=== PATIENT | female | born 2000 | race Caucasian/White ===

== ENCOUNTER → 2022-07-16 15:18 | Outpatient (CLI) | payer OTHER, SELFPAY ==
--- NOTE | ~2022-07-16 | XR_ITS ---
EXAM: XR abdomen/kub 1V DATE: 07/16/2022 15:42 HISTORY: Calculus of ureter . COMPARISON: 07/16/2022. FINDINGS: Clear lung bases. Normal bowel gas pattern. No organomegaly. No abnormal abdominal calcifi cation. Unfused posterior L5 arch, otherwise the regional bones and soft tissues normal for age. IMPRESSION: Normal abdominal radiograph findings. Reviewed, dictated and finalized at location K. 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
--- NOTE | ~2022-07-16 | CT_ITS ---
EXAMINATION: CT abdomen pelvis wo con DATE: 07/16/2022 15:42 INDICATION: Ureteral calculus, right side TECHNIQUE: Computed tomography (CT) of the abdomen and pelvis was performed without intravenous contr ast. Automated exposure control and iterative reconstruction technique were employed. Exam dose: 105 6.76 mGy-cm total exam DLP. COMPARISON: 07/16/2022 KUB FINDINGS: The lung bases are clear. Normal heart size. No pericardial or pleural effusion. The liver, gallbladder, bile ducts, spleen, pancreas, pancreatic duct, and adrenal glands and kidneys are unremarkable. No urinary tract calculus or hydroureteronephrosis. The urinary bladder is evacuat ed. The uterus and adnexal areas are unremarkable. Normal caliber of the abdominal aorta. No intraperitoneal or retroperitoneal or pelvic mass lesion or adenopathy or ascites is noted. There is a very small amount of free fluid in the posterior cul-de-s ac. Normal appendix. No bowel obstruction, bowel wall thickening, pneumatosis or intraperitoneal free air . Small fat-containing umbilical hernia. Included skeletal structures are unremarkable. IMPRESSION: No urinary tract calculus or hydroureteronephrosis Normal appendix Reviewed, dictated and finalized at Location A. Reviewed, dictated and finalized at location B. OF [employer]CH[employer]
== END ==
PROVIDERS: PCP Nurse Practitioner Adult Health; Visit Provider Nurse Practitioner Adult Health
DX: N20.1 Calculus of ureter (principal)
CPT/HCPCS: 74018; 74176

== ENCOUNTER 2025-02-11 17:55 | Emergency (ER) | payer OTHER, SELFPAY ==
--- NOTE | 2025-02-11 17:56 | ED.EAR ---
HPI - Ear Problem General Chief complaint: Ear Stated complaint: ear check Time Seen by Provider: 02/11/25 17:56 Source: patient Mode of arrival: ambulatory Limitations: no limitations History of Present Illness HPI Narrative: Stella is a 24-year-old female patient presenting to the clinic today with complaints of right ear discomfort x 1 day. She reports she has been recently swimming. No drainage from the ear. No fever, chills, or bodyaches. No URI symptoms. Related Data Home Medications ?Medication ?Instructions ?Recorded ?Confirmed ?Last Taken ?Type fluoxetine 40 mg capsule mg 02/11/25 Unknown History folic acid 1 mg tablet 02/11/25 Unknown History Allergies Allergy/AdvReac Type Severity Reaction Status Date / Time No Known Allergies Allergy Verified 02/11/25 18:07 Review of Systems Review of Systems: Pertinent positives per HPI. Patient denies any fever, chills, rash, headache, visual changes, dizziness, cough, runny nose, sore throat, shortness of breath, chest pain, palpitations, nausea, vomiting, diarrhea, constipation, abdominal pain, or any urinary issues. PMFSH Comments At the time of my signature, I reviewed and agree with the nursing past medical, surgical, social, and family history. There is no relevant family history pertinent to the patient complaint. Exam Narrative: General: Well-developed, well nourished, in no apparent distress Head: Normocephalic, atraumatic Eyes: Pupils equally round and reactive to light bilaterally, EOM intact, sclera and conjunctive clear, no discharge, lids normal Ears: Cerumen impaction to the right ear canal, TMs intact and congested, left ear canal clear, right ear canal swollen and red, tenderness to palpation over the tragus and pulling of the pinna, no drainage, grossly hearing normal. Nose: Nares patent, no discharge, no inflammation, no sinus tenderness. Mouth: Oropharynx without lesions or masses, good dentition, MMM. Neck: Supple, trachea midline, no enlargement of anterior or posterior cervical nodes, no thyroid masses or goiter palpable. Cardio: Regular rate and rhythm, s1 and s2 normal, no murmur appreciated. Resp: Clear to auscultation bilaterally anteriorly and posteriorly, no rhonchi, rales, wheezing or rubs Course Course Emergency Course: Portions of this record may have been created with voice recognition software. Level of Care: Express Care Visit Vital Signs Vital signs: Vital Signs Temperature 37.0 C 02/11/25 18:06 Pulse Rate 89 02/11/25 18:06 Respiratory Rate 16 02/11/25 18:06 Blood Pressure 142/92 H 02/11/25 18:06 Pulse Oximetry 97 02/11/25 18:06 Oxygen Delivery Room Air 02/11/25 18:06 Temperature 37.0 C 02/11/25 18:06 Pulse Rate 89 02/11/25 18:06 Respiratory Rate 16 02/11/25 18:06 Blood Pressure 142/92 H 02/11/25 18:06 Pulse Oximetry 97 02/11/25 18:06 Oxygen Delivery Room Air 02/11/25 18:06 Vital signs reviewed Procedures Ear Wax Removal Right Ear: Ear Wax Removal Date: 02/11/25 Results: Re-examined: some cerumen remains TM Examination: TM(s) intact, normal appearance Ear Canal Exam: atraumatic and other (Red, swollen) Patient Tolerated Procedure: well and no complications Complications: no problems Technique: ear canal irrigated Additional Comments: Verbal consent obtained for ear irrigation. Risk and benefits explained and patient voiced understanding. Ear irrigation performed using an elephant ear and spray water bottle. Mixture of 1/2 peroxide 1/2 water used to irrigate ear canal. Cerumen impaction cleared and TM visualized without redness. Grossly hearing normal. Patient tolerated procedure well Medical Decision Making MDM Narrative Medical decision making narrative: At the time of visit patient is resting comfortably on the exam table. Patient appears to be nontoxic. Plan: I suspect patient has cerumen impaction/right otitis externa. Ear irrigation was performed in the clinic successfully. Patient tolerated fair. Right ear canals red and swollen. Will place on ofloxacin. Supportive measures were discussed with the patient and they voiced understanding discharge instructions and agrees to treatment plan. Return precautions reviewed Differential Diagnosis Differential Diagnosis: Otitis media, otitis externa, eustachian tube dysfunction, cerumen impaction, upper respiratory infection, serous otitis Vital Signs Vital Signs: Vital Signs Temperature 37.0 C 02/11/25 18:06 Pulse Rate 89 02/11/25 18:06 Respiratory Rate 16 02/11/25 18:06 Blood Pressure 142/92 H 02/11/25 18:06 Pulse Oximetry 97 02/11/25 18:06 Oxygen Delivery Room Air 02/11/25 18:06 Temperature 37.0 C 02/11/25 18:06 Pulse Rate 89 02/11/25 18:06 Respiratory Rate 16 02/11/25 18:06 Blood Pressure 142/92 H 02/11/25 18:06 Pulse Oximetry 97 02/11/25 18:06 Oxygen Delivery Room Air 02/11/25 18:06 Discharge Plan Discharge Clinical Impression: Cerumen impaction Qualifiers: Laterality: right Qualified Code(s): H61.21 - Impacted cerumen, right ear External otitis of right ear Qualifiers: Otitis externa type: diffuse Chronicity: acute Qualified Code(s): H60.311 - Diffuse otitis externa, right ear Patient Disposition: Home Condition: Stable Instructions: Antibiotic Form, [place]'s [facility] (ED) Additional Instructions: Ear irrigation was performed in the clinic today. Take any prescribed medications only as directed-ofloxacin Tylenol/motrin as needed for pain May use heating pad to alleviate pain If you get recurrent ear infections it may be warranted to follow up with ENT. Follow up with your PCP in 3-5 days if symptoms persist. Patient Language: Icelandic Prescriptions: New ofloxacin 0.3 % drops 5 drp otic (ear) BID 7 Days Qty: 5 0RF No Action fluoxetine 40 mg capsule folic acid 1 mg tablet Follow-up/Referrals: UNKNOWN,DOCTOR [Non-Staff] - Time of Disposition: 18:12 Quality NIHSS Nursing Documentation ED NIHSS nursing documentation: reviewed/agree
--- OUTSIDE RECORDS SUMMARY | 2025-02-11 17:57 | XMS_ITS | Clinical Summary ---
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 [place] [address] Josefa Cheung MD 12/12/2024 1:20 PM CDT Office Visit [facility] - [facility] [address] [place] [address] Josefa Cheung MD Encounter for preconception consultation (Primary Dx); Encounter to establish care with new doctor from Last 3 Months Family History Medical History Relation Name Comments Hypertension Father Teodoro Cancer Maternal Grandfather Don Melanom a Breast Cancer Maternal Grandmother Ofelia Relation Name Status Comments Father Teodoro Alive Maternal Grandfather Don Alive Maternal Grandmother Ofelia Alive Social History Tobacco Use Types Packs/Day Years Used Date Smoking Tobacco: Never Passive Smoke Exposure: Never Smokeless Tobacco: Never Tobacco Cessation:Counseling Given: Not Answered Alcohol Use Standard Drinks/Week Comments Not Currently 0 (1 standard drink = 0.6 oz pur e alcohol) Comments No Sex and Gender Information Value Date Recorded Sex Assigned at Not on file Legal Sex Female 6:57 AM TITLE CURATOR Gender Identity Not on file Sexual Orientation Not on file Last Filed Vital Signs Vital Sign Reading Time Taken Comments Blood Pressure 132/74 12/12/2024 12:58 PM CDT Pulse 91 08/29/2024 10:01 AM TITLE CURATOR Temperature - - Respiratory Rate - - Oxygen Saturation 99% 08/29/2024 10:01 AM TITLE CURATOR Inhaled Oxygen Concentration - - Weight 131 kg (288 lb 12.8 oz) 12/12/2024 12:58 PM CDT Height 167.6 cm (5' 6) 12/12/2024 12:58 PM CDT Body Mass Index 46.61 12/12/2024 12:58 PM CDT Plan of Treatment Upcoming Encounters Date Type Department Care Team (Late st Contact Info) Description 03/06/2025 9:30 AM CDT Appointment [facility] [address] [place] [id number] [address] Health Maintenance Due Date Last Done Comments HPV VACCINES (1 - 3-dose series) 2013 HEPATITIS B VACCINES (3 of 3 - 19+ 3-dose series) 07/13/2018 05/18/2018, 11/16/2017, 10/07/2017 CERVICAL CANCER SCREENING 2019 HPV/Cotest (21-29) 2019 PAP SMEAR 2019 INFLUENZA VACCINE (#1) 2025 , 07/01/2019, 05/26/2018, Additional history exists DTAP/TDAP/TD VACCINES (3 - T d or Tdap) 04/04/2034 04/04/2024, 10/01/2017 Insurance [facility] [employer] [facility] OA PLUS
--- OUTSIDE RECORDS SUMMARY | 2025-02-11 17:57 | XMS_ITS | Data Portability ---
Author Organization [facility] Address [address] [address] Assessment Encounter Date Assessment Date Assessment LastModified by Organization Details LastModified Time 02/08/2024 02/08/2024 Pt with obesity related to excess energy intake, childbearing as evidenced by BMI of 46. Intervention: Increase knowledge of nutrition management by providing appropriate education to include portions, fiber, healthy fats, sodium, healthy plate guidelines, etc. Nutriquiz. Healthy weight program. Monitoring/Evalu ation: Verbal check in, will check diet recall at next appointment to assess adherence to diet recommendations. Review of NutriQuiz. Check weight PRN. Pt expressed understanding of the education provided. Pt felt confident that she could incorporate education to meet long and short term goals. Scheduled patient for follow-up in 3 weeks. Took follow-up survey with patient to encourage follow-up scheduling and completion: https://forms.gl [email or web address] Dq7 Completed NutriQuiz with patient and identified opportunities for improvement in diet quality yes Visit Start Time: 2:00 PM EDT Visit End Time: 2:58 PM EDT Total minutes providing MNT via audio or video: 58 minutes Not available 02/08/2024 15:17:58 03/07/2024 03/07/2024 Pt with obesity related to excess energy intake, childbearing as evidenced by BMI of 46. Intervention: Increase knowledge of nutrition management by providing appropriate education to include portions, fiber, healthy fats, sodium, healthy plate guidelines, etc. Nutriquiz. Healthy weight program. Monitoring/Evalu ation: Verbal check in, will check diet recall at next appointment to assess adherence to diet recommendations. Review of NutriQuiz. Check weight PRN. Pt expressed understanding of the education provided. Pt felt confident that she could incorporate education to meet long and short term goals. Scheduled patient for follow-up in 3 weeks. Took follow-up survey with patient to encourage follow-up scheduling and completion: [email or web address] Dq7 Completed NutriQuiz with patient and identified opportunities for improvement in diet quality yes Visit Start Time: 1:00 PM EDT Visit End Time: 1:55 PM EDT Total minutes providing MNT via audio or video: 55 minutes Not available 03/07/2024 13:58:13 03/14/2024 03/14/2024 Pt with obesity related to excess energy intake, childbearing as evidenced by BMI of 46. Intervention: Increase knowledge of nutrition management by providing appropriate education to include portions, fiber, healthy fats, sodium, healthy plate guidelines, etc. Nutriquiz. Healthy weight program. Monitoring/Evalu ation: Verbal check in, will check diet recall at next appointment to assess adherence to diet recommendations. Review of NutriQuiz. Check weight PRN. Pt expressed understanding of the education provided. Pt felt confident that she could incorporate education to meet long and short term goals. Scheduled patient for follow-up in 3 weeks. Took follow-up survey with patient to encourage follow-up scheduling and completion: [email or web address] Dq7 Completed NutriQuiz with patient and identified opportunities for improvement in diet quality yes Visit Start Time: 1:00 PM EDT Visit End Time: 1:56 PM EDT Total minutes providing MNT via audio or video: 56 minutes Not available 03/14/2024 14:09:01 03/21/2024 03/21/2024 Pt with obesity related to excess energy intake, childbearing as evidenced by BMI of 46. Intervention: Increase knowledge of nutrition management by providing appropriate education to include portions, fiber, healthy fats, sodium, healthy plate guidelines, etc. Nutriquiz. Healthy weight program. Monitoring/Evalu ation: Verbal check in, will check diet recall at next appointment to assess adherence to diet recommendations. Review of NutriQuiz. Check weight PRN. Pt expressed understanding of the education provided. Pt felt confident that she could incorporate education to meet long and short term goals. Scheduled patient for follow-up in 3 weeks. Took follow-up survey with patient to encourage follow-up scheduling and completion: [email or web address] Dq7 Completed NutriQuiz with patient and identified opportunities for improvement in diet quality yes Visit Start Time: 1:00 PM EDT Visit End Time: 1:53 PM EDT Total minutes providing MNT via audio or video: 53 minutes Not available 03/21/2024 13:55:13 04/18/2024 04/18/2024 Pt with obesity related to excess energy intake, childbearing as evidenced by BMI of 46. Intervention: Increase knowledge of nutrition management by providing appropriate education to include portions, fiber, healthy fats, sodium, healthy plate guidelines, etc. Nutriquiz. Healthy weight program. Monitoring/Evalu ation: Verbal check in, will check diet recall at next appointment to assess adherence to diet recommendations. Review of NutriQuiz. Check weight PRN. Pt expressed understanding of the education provided. Pt felt confident that she could incorporate education to meet long and short term goals. Scheduled patient for follow-up in 3 weeks. Took follow-up survey with patient to encourage follow-up scheduling and completion: [email or web address] Dq7 Completed NutriQuiz with patient and identified opportunities for improvement in diet quality yes Visit Start Time: 1:00 PM EDT Visit End Time: 1:54 PM EDT Total minutes providing MNT via audio or video: 54 minutes Not available 04/18/2024 13:55:22 Plan of Treatment Reminders Order Date Submit Date Provider Last Modified By Organization Details Last Modified Time Details Appointments None record ed. Lab None record ed. Referral None record ed. Procedures None record ed. Surgeries None record ed. Imaging None record ed. Medication Orders None record ed. Patient Targets Encounter Date Encounter Id Patient Goals Patient Target Last Modified By Organization Details Last Modified Time 02/08/2024 [id number] 1. Do a 15 minute beach body workout at least 3x per week for the next month. 2. Incorporate plate method into at least 1 meal at least 3x per week for the next 3 weeks. (refer to healthy plate guidelines: 1/2 non starchy vegetable, 1/4 lean proteins, and 1/4 grains/starches .) Not available 02/08/2024 15:14:49 03/07/2024 [id number] 1. Do a 15 minute beach body workout at least 3x per week for the next month. 2. Incorporate plate method into at least 1 meal at least 3x per week for the next 3 weeks. (refer to healthy plate guidelines: 1/2 non starchy vegetable, 1/4 lean proteins, and 1/4 grains/starches .) Not available 03/02/2024 13:16:26 03/14/2024 [id number] 1. Do a 10-15 minute beach body workout at least 3x per week for the next month. 2. Incorporate plate method into at least 1 meal at least 3x per week for the next 3 weeks. (refer to healthy plate guidelines: 1/2 non starchy vegetable, 1/4 lean proteins, and 1/4 grains/starches .) 3. Download a calorie tracking dennis like [employer] Trunkpal and try tracking a full day of eating at least 2x in the next week. Not available 03/14/2024 14:10:05 03/21/2024 [id number] 1. Do 40 minutes of activity 4x per week in the next week. 2. Continue calorie tracking dennis 3x per week like [employer] Trunkpal and work on being within calorie range of ~7253-8538 calories/day. 3. Go on the GrowBLOX or any other healthy recipe site to find 1-2 healthy recipes to try in the next week. Not available 03/21/2024 13:51:32 04/18/2024 [id number] 1. Do 40 minutes of activity 4x per week in the next week. 2. Continue calorie tracking dennis 3x per week like [employer] Tr[employer] and work on being within calorie range of ~7125-2508 calories/day. 3. Go on the GrowBLOX or any other healthy recipe site to find 1-2 healthy recipes to try in the next week. Not available 04/13/2024 13:10:10 Patient Instructions Encounter Date Encounter Id Patient Instructions Last Modified By Organization Details Last Modified Time 02/08/2024 [id number] [facility] Plate Not available 02/08/2024 15:19:49 [facility] Weight Program Packet Not available 02/08/2024 15:19:49 Kimo Douglas, these are the goals we discussed today to try to work on prior to our next appointment: 1. Do a 15 minute workout on the [employer]Connect CRM dennis at least 3x per week for the next month. 2. Incorporate plate method into at least 1 meal at least 3x per week for the next 3 weeks. (refer to healthy plate guidelines: 1/2 non starchy vegetable, 1/4 lean proteins, and 1/4 grains/starches.) Have a great week and you got this! Not available 02/08/2024 15:16:13 03/07/2024 [id number] [facility] Plate Not available 03/07/2024 15:38:32 [facility] Weight Program Packet Not available 03/07/2024 15:38:32 [facility] 4: Fiber First Not available 03/07/2024 15:38:32 learning about foods that are good sources of fiber Not available 03/07/2024 15:38:32 Kimo Douglas, these are the goals we discussed today to try to work on prior to our next appointment: 1. Do a 10 minute workout on the [employer]Connect CRM dennis at least 3x per week for the next month. 2. Incorporate plate method into at least 1 meal at least 3x per week for the next 3 weeks. (refer to healthy plate guidelines: 1/2 non starchy vegetable, 1/4 lean proteins, and 1/4 grains/starches.) High protein snack ideas: https://www.[employer]Vault Dragon/nutriti on/kmpqqdj-skfz-z rotein-snacks#26. -US[employer]t dennis log in instructions: https://support.[facility].co/hc/en -us/articles/4402 379113141-Eyskr-c ulfzznzl-ogu-mkyx lvxdfg-Bmh-lhvhl Have a great week and you got this! Not available 03/07/2024 15:42:06 03/14/2024 [id number] [facility] Plate Not available 03/14/2024 14:11:29 [facility] Weight Program Packet Not available 03/14/2024 14:11:29 [facility] 4: Fiber First Not available 03/14/2024 14:11:29 learning about foods that are good sources of fiber Not available 03/14/2024 14:11:29 [facility] 5: Healthy Fats Not available 03/14/2024 14:11:29 Hi Stella, these are the goals we discussed today to try to work on prior to our next appointment: 1. Do a 10 minute workout on the [employer]Connect CRM dennis at least 3x per week for the next month. 2. Incorporate plate method into at least 1 meal at least 3x per week for the next 3 weeks. (refer to healthy plate guidelines: 1/2 non starchy vegetable, 1/4 lean proteins, and 1/4 grains/starches.) 3. Download a calorie tracking dennis like [employer] and try tracking a full day of eating at least 2x in the next week. High protein snack ideas: https://www.[employer]ursenav/nutriti on/sksomlf-ryfs-u rotein-snacks#26. -USMDt dennis log in instructions: https://support.[facility].co/hc/en -us/articles/4402 820138362-Rsbic-k amahbloz-vee-dpas qjyska-Khu-onunt Have a great week and you got this! Not available 03/14/2024 14:10:03 Recommended calorie range for weight loss: ~4501-5354 calories/day Not available 03/14/2024 14:10:33 03/21/2024 [id number] [facility] Plate Not available 03/21/2024 13:55:21 [facility] Weight Program Packet Not available 03/21/2024 13:55:21 [facility] 4: Fiber First Not available 03/21/2024 13:55:21 learning about foods that are good sources of fiber Not available 03/21/2024 13:55:21 [facility] 5: Healthy Fats Not available 03/21/2024 13:55:21 Hi Stella, these are the goals we discussed today to try to work on prior to our next appointment: 1. Do 40 minutes of activity 4x per week in the next week. 2. Continue calorie tracking dennis 3x per week like Chief Trunkpal and work on being within calorie range of ~4884-3039 calories/day. 3. Go on the [employer]in website or any other healthy recipe site to find 1-2 healthy recipes to try in the next week. High protein snack ideas: https://www.[employer]ursenav/nutriti on/aeyzkcg-edce-a rotein-snacks#26. -Quinoa [facility] dennis log in instructions: https://support.[facility].Strands/hc/en -us/articles/4402 146445318-Kloka-f rkfvcueu-apc-jcbh ihmajm-Ijv-gyank Have a great week and you got this! Not available 03/21/2024 13:52:25 Recommended calorie range for weight loss: ~3233-2713 calories/day Recommended protein range: 71-88 g protein Not available 03/21/2024 13:46:33 04/18/2024 [id number] [facility] Plate Not available 04/18/2024 13:55:23 [facility] Weight Program Packet Not available 04/18/2024 13:55:23 [facility] 4: Fiber First Not available 04/18/2024 13:55:23 learning about foods that are good sources of fiber Not available 04/18/2024 13:55:23 [facility] 5: Healthy Fats Not available 04/18/2024 13:55:23 Kimo Douglas, these are the goals we discussed today to try to work on prior to our next appointment: 1. Walk dogs at least 1x and do at least 1 beach body workout. 2. Continue calorie tracking dennis 1-2x per week like [employer]unkpal and work on being within calorie range of ~1494-1929 calories/day and 71-88 g of protein. 3. Go on the [employer] website or any other healthy recipe site to find 1-2 healthy recipes to try in the next week. High protein snack ideas: https://www.Nursenav/nutriti on/uqfamkb-cwyu-g rotein-snacks#26. -[employer] dennis log in instructions: https://support.f [employer].co/hc/en -us/articles/4402 155250444-Nppml-i pfhrtbcr-shr-tpcg anndnw-Qkn-mxdzh Have a great week and you got this! Not available 04/18/2024 13:54:53 Recommended calorie range for weight loss: ~3851-1986 calories/day Recommended protein range: 71-88 g protein Not available 04/13/2024 13:10:10 Reason for Referral None Reported. Medical Equipment None Reported. Medications Name Sig Start Date Stop Date Status Note LastModified by Organization Details LastModified Time fluoxetine 40 mg capsule TAKE 1 CAPSULE BY MOUTH ONCE DAILY active Not Available Not Available No t Available cyanocobalam in (vit B-12) ER 1,000 mcg tablet,exten ded release active Not Available Not Available Not Available acetic acid 2 % ear solution INSTILL 4 DROPS INTO AFFECTED EAR(S) EVERY 8 HOURS FOR 7 DAYS active Not Available Not Available No t Available methylergono vine 0.2 mg tablet active Not Available Not Available Not Available progesterone micronized 200 mg capsule TAKE 3 CAPSULES BY MOUTH AT BEDTIME active Not Available Not Available No t Available pyridoxine (vitamin B6) 50 mg tablet active Not Available Not Available Not Available folic acid 1 mg tablet active Not Available Not Available No t Available ibuprofen 600 mg tablet active Not Available Not Available Not Available fluoxetine 20 mg capsule TAKE 1 CAPSULE BY MOUTH ONCE DAILY active Not Available Not Available No t Available fluticasone propionate 50 mcg/actuatio n nasal spray,suspen aptricia USE 1 SPRAY(S) IN EACH NOSTRIL ONCE DAILY BEFORE BED FOR 14 DAYS active Not Available Not Available Not Available ciprofloxaci n 0.3 %-dexamethas one 0.1 % ear drops,suspen patricia INSTILL 3 DROPS INTO EACH EAR TWICE DAILY FOR 7 DAYS active Not Available Not Available N ot Available Tri-Sprintec (28) 0.18 mg(7)/0.215 mg(7)/0.25 mg(7)-0.035 mg tablet TAKE 1 TABLET BY MOUTH ONCE DAILY active Not Available Not Available No t Available Vraylar 1.5 mg capsule TAKE 1 CAPSULE BY MOUTH ONCE DAILY active Not Available Not Available No t Available EluRyng 0.12 mg-0.015 mg/24 hr vaginal ring INSERT ONE RING VAGINALLY AND LEAVE IN PLACE FOR 3 CONSECUTIVE WEEKS, THEN REMOVE FOR 1 WEEK. INSERT NEW RING 7 DAYS AFTER THE LAST WAS REMOVED active Not Available Not Available No t Available Vitals Date Recorded Body weight Body mass index (BMI) Body height Provider Name and Address Organization Details Last Updated DateTime 02/08/2024 409304.83 g 46 kg/m2 167.64 cm Enedelia Mariscals, RD [address] [facility], [place], [address], [facility] [employer] 02/08/2024 14:13:24 Date Recorded Body height Provider Name an d Address Organization Details Last Updated DateTime 03/07/2024 167.64 cm Enedelia Carlson, R D [address] [facility], [place], [address], [facility] [employer] 03/07/2024 15:39:11 Date Recorded Body height Body mass index (BMI) Body weight Provider Name and Address Organization Details Last Updated DateTime 03/14/2024 167.64 cm 47.3 kg/m2 607879.56 g Enedelia Mariscals, RD [address] [facility], [place], [address], [facility] [employer] 03/14/2024 13:32:20 Date Recorded Body height Body mass index (BMI) Body weight Provider Name and Address Organization Details Last Updated DateTime 03/21/2024 167.64 cm 46.8 kg/m2 239885.79 g Enedelia Carlson, RD [address] [facility], [place], [address], [facility] [employer] 03/21/2024 13:45:07 Date Recorded Body height Body mass index (BMI) Body weight Provider Name and Address Organization Details Last Updated DateTime 04/18/2024 167.64 cm 46.6 kg/m2 376215.19 g Enedelia Mariscals, RD [address] [facility], [place], [address], [facility] [employer] 04/18/2024 13:01:43 Social History None recorded. Functional Status None recorded. Mental Status None recorded. Family History Nothing Reported Notes:High BP in father, steve anoma, breast cancer Medical History Condition Response High Blood Pressure N Anxiety Y Hyperthyroidism N Autoimmune Condition N Depression Y Hypothyroidism N Celiac Disease N Elevated Cholesterol Y Long-term corticosteroid use N Type 2 Diabetes N Prediabetes N Obesity Y Kidney Disease (CKD/ESRD) N Inflammatory Bowel Disease N Cancer N Stroke N Heart Attack N Allergies N Cardiovascular Disease N Long-term antibiotic use N GERD, Reflux or Heartburn N Irritable Bowel Syndrome N Type 1 Diabetes N Gynecological HistoryNo gynecological history recorded. Obstetrics History GPAL:G 0 P 0 0 0 0 Past Encounters Encounter ID Performer Location Encounter Start Date Encounter Closed Date Diagnosis/Indication Diagnosis SNOMED-CT Code Diagnosis ICD10 Code Diagnosis Note [id number] Enedelia Carlson RD [address] [place] [address] 02/08/2024 14:00:12 02/08/2024 15:26:50 Diet education 96829806 Z71.3 1. Discussed week 1 of healthy weight: setting SMART goals.2. Began week 2: healthy plate [id number] Enedelia Carlson RD [address] [place] [address] 03/07/2024 12:59:47 03/07/2024 15:43:54 Diet education 87021297 Z71.3 1. Discussed week 1 of healthy weight: setting SMART goals.2. Began week 2: healthy plate3. Discussed healthy weight week 2: portions4. discussed role of fiber and dietary sources [id number] Enedelia Carlson RD [address] [place] [address] 03/14/2024 13:00:03 03/14/2024 14:14:14 Diet education 34964388 Z71.3 1. Discussed week 1 of healthy weight: setting SMART goals.2. Began week 2: healthy plate3. Discussed healthy weight week 2: portions4. discussed role of fiber and dietary sources5. Discussed reading food labels and added sugars.6. Discussed role and dietary sources of healthy fats. [id number] Enedelia Carlson RD [address] [place] [address] 03/21/2024 13:00:03 03/21/2024 14:23:42 Diet education 89243155 Z71.3 1. Discussed week 1 of healthy weight: setting SMART goals.2. Began week 2: healthy plate3. Discussed healthy weight week 2: portions4. discussed role of fiber and dietary sources5. Discussed reading food labels and added sugars.6. Discussed role and dietary sources of healthy fats.7. Discussed curbing cravings.8 . Discussed importance of physical activity. [id number] Enedelia Carlson RD [facility] [place] [address] [facility],[address] [place] [address] 04/18/2024 12:59:55 04/18/2024 14:00:18 Diet education 91401348 Z71.3 1. Discussed week 1 of healthy weight: setting SMART goals.2. Began week 2: healthy plate3. Discussed healthy weight week 2: portions4. discussed role of fiber and dietary sources5. Discussed reading food labels and added sugars.6. Discussed role and dietary sources of healthy fats.7. Discussed curbing cravings.8 . Discussed the importance of physical activity.9 . Discussed mindful eating and tuning into hunger cues. Health Concerns Section Related Observation LastModified by Organization Detai ls LastModified Time None Recorded Concern Status LastModified by Organization Details LastModified Time None Recorded Advance Directives Directive None Recorded Payers Insurance Date Sequence Insurance Name Policy Number Policy Pimentel Covered Member ID Pimentel Member ID Guarantor Name 05/20/2024 1 TROY [id number] Stella Hernandez [id number] Stella Hernandez Notes Date Note Type Note Provider Name and Address Organization Details Recorded Time 02/08/2024 text/html [facility] ADIMER[facility]orted bypatient.Weight History:desired/goal weight: 160-170 pounds; past diets: (did keto prior to joining the ) Labs:total cholesterol (high); hx of low vit D Diet Recall:breakfast notes: (cereal); AM snack notes: (candy, snack, chips); lunch notes: (pizza); PM snack notes: (donuts); dinner notes: (tacos: cheese, sour cream, hot sauce); beverage notes: (sweet tea, water, sometimes coke) Fluid Intake:never drinks coffee; never drinks alcohol;drinks very little fluids(24-48 oz); drinks regular soda Appetite:good (always hungry - especially bwhen bored) Food Allergies or Intolerances:no food allergies; no lactose intolerance;aversions /dislikes:(seafood (sometimes like cod or catfish)) GI:no heartburn;bloating(we ekly - when she overeats);constipatio n(a few times a month);diarrhea(a couple times a month); bowel movements: 1+ per day Supplements:currently taking vitamin supplement (B6, folic acid); Doctor has recommended she take vit D, she just has not taken it yet Activity:Just got a swimming pool - swims a couple hours per day Social:eats breakfast; cooks meals (sometimes); likes to cook (sometimes - lasagna, tacos, enchiladas); Lives with and 2 children Usual Food Intake:daily servings of grains/starches: 7-8; daily servings of fruits: (once per week - strawberries, mangoes, grapes, peaches, oranges, watermelon); daily servings of vegetables: (1-2 per week - likes broccoli, cauliflower, carrots); daily intake of meat: ounces (chicken, steak, burgers,) Adult Weight Management Assessment Food and Nutrition Knowledge and Behaviors:consumes dairy food servings/day (1% or 2% milk with yogurt and sometimes cheese); reads food labels and uses labels to make appropriate food selections (looks at calories, serving size) Pt seen by RD regarding nutrition counseling for weight loss. Pt reports that reports that she has steadily gained weight since her last where she lost her baby and is hoping to learn about eating healthier and losing weight. Enedelia Carlson RD [address] [facility],[address], [place], [address], [place] - [employer] 02/08/2024 15:24:19 03/07/2024 text/html [facility] ADIMEReported bypatient.Weight History:desired/goal weight: 160-170 pounds; past diets: (did keto prior to joining the ) Labs:total cholesterol (high); hx of low vit D Diet Recall:breakfast notes: (cereal); AM snack notes: (candy, snack, chips); lunch notes: (pizza); PM snack notes: (donuts); dinner notes: (tacos: cheese, sour cream, hot sauce); beverage notes: (sweet tea, water, sometimes coke) Fluid Intake:never drinks coffee; never drinks alcohol;drinks very little fluids(24-48 oz); drinks regular soda Appetite:good (always hungry - especially bwhen bored) Food Allergies or Intolerances:no food allergies; no lactose intolerance;aversions /dislikes:(seafood (sometimes like cod or catfish)) GI:no heartburn;bloating(we ekly - when she overeats);constipatio n(a few times a month);diarrhea(a couple times a month); bowel movements: 1+ per day Supplements:currently taking vitamin supplement (B6, folic acid); Doctor has recommended she take vit D, she just has not taken it yet Activity:Just got a swimming pool - swims a couple hours per day Social:eats breakfast; cooks meals (sometimes); likes to cook (sometimes - lasagna, tacos, enchiladas); Lives with and 2 children Usual Food Intake:daily servings of grains/starches: 7-8; daily servings of fruits: (once per week - strawberries, mangoes, grapes, peaches, oranges, watermelon); daily servings of vegetables: (1-2 per week - likes broccoli, cauliflower, carrots); daily intake of meat: ounces (chicken, steak, burgers,) Adult Weight Management Assessment Food and Nutrition Knowledge and Behaviors:consumes dairy food servings/day (1% or 2% milk with yogurt and sometimes cheese); reads food labels and uses labels to make appropriate food selections (looks at calories, serving size) Pt seen by RD regarding nutrition counseling for weight loss. Pt reports that reports that she has steadily gained weight since her last where she lost her baby and is hoping to learn about eating healthier and losing weight. 03/07- Pt seen in f/u by RD regarding nutrition counseling for weight loss. Pt reports that has been struggling with an all or nothing mentality. Reports that she has also been struggling with snacking and mindless eating. Reports that she has been doing a lot of swimming recently. Reviewed goals set last time and discussed trying to set aside time to get into the habit of intentional exercise by trying to set aside at least 10 minutes a couple times per week. Discussed some ideas for high protein snacks. Enedelia Carlson, MONSE [address] [facility],[address], [place], [address], [place] - [place] 03/07/2024 15:43:08 03/14/2024 text/html FOODSMART ADIMEReported bypatient.Weight History:desired/goal weight: 160-170 pounds; past diets: (did keto prior to joining the ) Labs:total cholesterol (high); hx of low vit D Diet Recall:breakfast notes: (cereal); AM snack notes: (candy, snack, chips); lunch notes: (pizza); PM snack notes: (donuts); dinner notes: (tacos: cheese, sour cream, hot sauce); beverage notes: (sweet tea, water, sometimes coke) Fluid Intake:never drinks coffee; never drinks alcohol;drinks very little fluids(24-48 oz); drinks regular soda Appetite:good (always hungry - especially bwhen bored) Food Allergies or Intolerances:no food allergies; no lactose intolerance;aversions /dislikes:(seafood (sometimes like cod or catfish)) GI:no heartburn;bloating(we ekly - when she overeats);constipatio n(a few times a month);diarrhea(a couple times a month); bowel movements: 1+ per day Supplements:currently taking vitamin supplement (B6, folic acid); Doctor has recommended she take vit D, she just has not taken it yet Activity:Just got a swimming pool - swims a couple hours per day Social:eats breakfast; cooks meals (sometimes); likes to cook (sometimes - lasagna, tacos, enchiladas); Lives with and 2 children Usual Food Intake:daily servings of grains/starches: 7-8; daily servings of fruits: (once per week - strawberries, mangoes, grapes, peaches, oranges, watermelon); daily servings of vegetables: (1-2 per week - likes broccoli, cauliflower, carrots); daily intake of meat: ounces (chicken, steak, burgers,) Adult Weight Management Assessment Food and Nutrition Knowledge and Behaviors:consumes dairy food servings/day (1% or 2% milk with yogurt and sometimes cheese); reads food labels and uses labels to make appropriate food selections (looks at calories, serving size) Pt seen by RD regarding nutrition counseling for weight loss. Pt reports that reports that she has steadily gained weight since her last where she lost her baby and is hoping to learn about eating healthier and losing weight. 03/07- Pt seen in f/u by RD regarding nutrition counseling for weight loss. Pt reports that has been struggling with an all or nothing mentality. Reports that she has also been struggling with snacking and mindless eating. Reports that she has been doing a lot of swimming recently. Reviewed goals set last time and discussed trying to set aside time to get into the habit of intentional exercise by trying to set aside at least 10 minutes a couple times per week. Discussed some ideas for high protein snacks. 03/14- Pt seen in f/u by RD regarding nutrition counseling for weight loss. Pt reports that she started being more mindful on what she's eating and working on building her balanced plate - noticed that she felt parish and more satisfied and had more energy. Reports that she did some swimming and did a 10 minute beach body workout. Great wins this week! Discussed reading food labels and limiting added sugars. Also discussed healthy fats and calorie deficits.MSJ =~2800 kcals/d; -500 kcal deficit range = 3564-8923 kcals/day Enedelia Carlson, MONSE [address] [facility],[address], [place], [address], [place] - [employer] 03/14/2024 14:13:34 03/21/2024 text/html FOODSMART ADIMEReported bypatient.Anthrop[employer] manuel Measurements:Adj BW= 194 lbs (88 kg) Weight History:desired/goal weight: 160-170 pounds; past diets: (tried keto prior to joining the ) Labs:total cholesterol (high); hx of low vit D Diet Recall:breakfast notes: (cereal); AM snack notes: (candy, snack, chips); lunch notes: (pizza); PM snack notes: (donuts); dinner notes: (tacos: cheese, sour cream, hot sauce); beverage notes: (sweet tea, water, sometimes coke) Fluid Intake:never drinks coffee; never drinks alcohol;drinks very little fluids(24-48 oz); drinks regular soda Appetite:good (always hungry - especially bwhen bored) Food Allergies or Intolerances:no food allergies; no lactose intolerance;aversions /dislikes:(seafood (sometimes like cod or catfish)) GI:no heartburn;bloating(we ekly - when she overeats);constipatio n(a few times a month);diarrhea(a couple times a month); bowel movements: 1+ per day Supplements:currently taking vitamin supplement (B6, folic acid); Doctor has recommended she take vit D, she just has not taken it yet Activity:Just got a swimming pool - swims a couple hours per day Social:eats breakfast; cooks meals (sometimes); likes to cook (sometimes - lasagna, tacos, enchiladas); Lives with and 2 children Usual Food Intake:daily servings of grains/starches: 7-8; daily servings of fruits: (once per week - strawberries, mangoes, grapes, peaches, oranges, watermelon); daily servings of vegetables: (1-2 per week - likes broccoli, cauliflower, carrots); daily intake of meat: ounces (chicken, steak, burgers,) Adult Weight Management Assessment Food and Nutrition Knowledge and Behaviors:consumes dairy food servings/day (1% or 2% milk with yogurt and sometimes cheese); reads food labels and uses labels to make appropriate food selections (looks at calories, serving size) Pt seen by RD regarding nutrition counseling for weight loss. Pt reports that reports that she has steadily gained weight since her last where she lost her baby and is hoping to learn about eating healthier and losing weight. 03/07- Pt seen in f/u by RD regarding nutrition counseling for weight loss. Pt reports that has been struggling with an all or nothing mentality. Reports that she has also been struggling with snacking and mindless eating. Reports that she has been doing a lot of swimming recently. Reviewed goals set last time and discussed trying to set aside time to get into the habit of intentional exercise by trying to set aside at least 10 minutes a couple times per week. Discussed some ideas for high protein snacks. 03/14- Pt seen in f/u by RD regarding nutrition counseling for weight loss. Pt reports that she started being more mindful on what she's eating and working on building her balanced plate - noticed that she felt parish and more satisfied and had more energy. Reports that she did some swimming and did a 10 minute beach body workout. Great wins this week! Discussed reading food labels and limiting added sugars. Also discussed healthy fats and calorie deficits.MSJ =~2800 kcals/d; -500 kcal deficit range = 9886-9359 kcals/day 03/21- Pt seen in f/u by RD regarding nutrition counseling for weight loss. Pt reports that she downloaded [employer] and tracked 3 days this past week - stayed around ~2100 calories. For exercise pt reports that she played tennis one day and did 2 beach body workouts. Reports that she struggled with some binge eating and emotional eating - discussed some strategies to manage. Pt reports that she meets with a therapist regularly. Some food that she has eating recently - hard boiled eggs, kodiak pancakes w/ zero sugar syrup, mini low sugar ice cream sandwiches. Discussed protein recommendations - (.8-1.0 adj BW) = 71-88 g protein/d. Enedelia Carlson, MONSE [address] [facility],[address], [place], [address], [place] [employer] 03/21/2024 14:23:23 04/18/2024 text/html FOODSMART ADIMEReported bypatient.[employer] manuel Measurements:Adj BW= 194 lbs (88 kg) Weight History:desired/goal weight: 160-170 pounds; past diets: (tried keto prior to joining the ) Labs:total cholesterol (high); hx of low vit D Diet Recall:breakfast notes: (cereal); AM snack notes: (candy, snack, chips); lunch notes: (pizza); PM snack notes: (donuts); dinner notes: (tacos: cheese, sour cream, hot sauce); beverage notes: (sweet tea, water, sometimes coke) Fluid Intake:never drinks coffee; never drinks alcohol;drinks very little fluids(24-48 oz); drinks regular soda Appetite:good (always hungry - especially bwhen bored) Food Allergies or Intolerances:no food allergies; no lactose intolerance;aversions /dislikes:(seafood (sometimes like cod or catfish)) GI:no heartburn;bloating(we ekly - when she overeats);constipatio n(a few times a month);diarrhea(a couple times a month); bowel movements: 1+ per day Supplements:currently taking vitamin supplement (B6, folic acid); Doctor has recommended she take vit D, she just has not taken it yet Activity:Just got a swimming pool - swims a couple hours per day Social:eats breakfast; cooks meals (sometimes); likes to cook (sometimes - lasagna, tacos, enchiladas); Lives with and 2 children Usual Food Intake:daily servings of grains/starches: 7-8; daily servings of fruits: (once per week - strawberries, mangoes, grapes, peaches, oranges, watermelon); daily servings of vegetables: (1-2 per week - likes broccoli, cauliflower, carrots); daily intake of meat: ounces (chicken, steak, burgers,) Adult Weight Management Assessment Food and Nutrition Knowledge and Behaviors:consumes dairy food servings/day (1% or 2% milk with yogurt and sometimes cheese); reads food labels and uses labels to make appropriate food selections (looks at calories, serving size) Pt seen by RD regarding nutrition counseling for weight loss. Pt reports that reports that she has steadily gained weight since her last where she lost her baby and is hoping to learn about eating healthier and losing weight. 03/07- Pt seen in f/u by RD regarding nutrition counseling for weight loss. Pt reports that has been struggling with an all or nothing mentality. Reports that she has also been struggling with snacking and mindless eating. Reports that she has been doing a lot of swimming recently. Reviewed goals set last time and discussed trying to set aside time to get into the habit of intentional exercise by trying to set aside at least 10 minutes a couple times per week. Discussed some ideas for high protein snacks. 03/14- Pt seen in f/u by RD regarding nutrition counseling for weight loss. Pt reports that she started being more mindful on what she's eating and working on building her balanced plate - noticed that she felt parish and more satisfied and had more energy. Reports that she did some swimming and did a 10 minute beach body workout. Great wins this week! Discussed reading food labels and limiting added sugars. Also discussed healthy fats and calorie deficits.MSJ =~2800 kcals/d; -500 kcal deficit range = 1238-1521 kcals/day 03/21- Pt seen in f/u by RD regarding nutrition counseling for weight loss. Pt reports that she downloaded [employer] and tracked 3 days this past week - stayed around ~2100 calories. For exercise pt reports that she played tennis one day and did 2 beach body workouts. Reports that she struggled with some binge eating and emotional eating - discussed some strategies to manage. Pt reports that she meets with a therapist regularly. Some food that she has eating recently - hard boiled eggs, kodiak pancakes w/ zero sugar syrup, mini low sugar ice cream sandwiches. Discussed protein recommendations - (.8-1.0 adj BW) = 71-88 g protein/d. 04/18- Pt seen in f/u by RD regarding nutrition counseling for weight loss. Pt report that she lost about a lb this past month and is really proud of herself. Found some some overnight oats and protein coffee that she will have in the morning which keep she full until lunch. Reports that she used some of the techniques we discussed last time for curbing cravings, which have helped. For physical activity she reports that she took her dogs on a walk a couple times. Enedelia Carlson, RD [address] [facility],[address], [place], [address], [place] - [place] 04/18/2024 13:56:32 OBGyn Episode No OBEpisode recorded.
--- OUTSIDE RECORDS SUMMARY | 2025-02-11 17:57 | XMS_ITS | Data Portability ---
Author Organization [place] - [facility] Address [address] [place] [address] Care Team Providers Care Glue Sprayer Name Role Phone PADMINI TABOR Primary Care Provider ANASTASIIA PATEL Inspector Publications Assessment Encounter Date Assessment Date Assessment LastModified by Organization Details LastModified Time 05/23/2024 05/23/2024 patient intermittently tearful in the office when discussing weight. Broadly discussed weight loss efforts & healthy ways to lose weight. [email or web address] Not available 05/23/2024 20:54:44 Plan of Treatment Reminders Order Date Submit Date Provider Last Modified By Organization Details Last Modified Time Details Appointments PHYSICAL/ ANNUAL WELLNESS 20 2024 11:40A M Padmini Tabor NP Not available Not available Not available Lab cytology report, thin prep, smear or scraping, cervical or vaginal 2024 025 [facility], [address] [facility], [place], [address], 09/22/2024 15:09:56 Referral None recorded. Procedures None recorded. Surgeries None recorded. Imaging None recorded. Medication Orders Lamictal 25 mg tablet [email or web address] [facility] [address] [place], [address], 01/30/2025 15:28:42 triamcino lone acetonide 0.1 % topical cream 2024 025 [facility] [address] [place], [address], 10/10/2024 14:05:41 fluoxetin e 40 mg capsule 2024 025 [facility] [address] [place], [address], 09/19/2024 15:10:59 Patient TargetsNo targets recorded. Patient Instructions Encounter Date Encounter Id Patient Instructions Last Modified By Organization Details Last Modified Time 04/04/2024 [id number] insomnia: care instructions Not available 04/04/2024 12:53:32 learning about sleeping well Not available 04/04/2024 12:53:32 10/10/2024 [id number] Eczema: Care Instructions Not available 10/10/2024 14:12:29 Reason for Referral None Reported. Results Created Date Observation Date Name Description Value Unit Range Abnormal Flag Note LastModifiedBy Organization Detail LastModifiedTime 09/19/1909/20/2024 IGP,C TNG,A PTIMA HPV,R FX16/ 18,45 HPV aptima Negati ve negati ve This nucle ic acid ampli ficat ion test detec ts fourt een high- risk HPV types (16,1 8,31, 33,35 ,39,4 5,51, 52,56 ,58,5 9,66, 68) witho ut diffe renti ation . Not Available [facility] ([facility]) [address] [facility], [place], [address], 09/22/2024 15:09:55 09/19/19 25 09/20/2024 IGP,C TNG,A PTIMA HPV,R FX16/ 18,45 chlamydia, nuc. acid amp Negati ve negati ve Not Available [facility] ([facility]) [address] [facility], [place], [address], 09/22/2024 15:09:55 09/19/19 25 09/20/2024 IGP,C TNG,A PTIMA HPV,R FX16/ 18,45 gonococcus, nuc. acid amp Negati ve negati ve Not Available [facility] ([facility]) [address] [place], [address], 09/22/2024 15:09:55 09/19/19 25 09/22/2024 IGP,C TNG,A PTIMA HPV,R FX16/ 18,45 diagnosis: Shania IBARRA FOR INTRA EPITH ELIAL LESIO N OR BRIAN MOONEY . Not Available [facility] ([facility]) [address] [facility], [place], [address], 09/22/2024 15:09:55 09/19/19 25 09/22/2024 IGP,C TNG,A PTIMA HPV,R FX16/ 18,45 specimen adequacy: Shania gabriel Satis facto ry for evalu ation . Endoc ervic al and/o r squam ous metap lasti c cells (endo cervi yadira compo nent) are prese nt. Not Available [facility] ([facility]) [address] [place], [address], 09/22/2024 15:09:55 09/19/19 25 09/22/2024 IGP,C TNG,A PTIMA HPV,R FX16/ 18,45 clinician provided ICD10: Shania gabriel Z01.4 19 Not Available [facility] ([facility]) [address] [place], [address], 09/22/2024 15:09:55 09/19/19 25 09/22/2024 IGP,C TNG,A PTIMA HPV,R FX16/ 18,45 performed by: Shania coronado Cytot quang gabriel (ASCP ) Not Available [facility] ([facility]) [address] [place], [address], 09/22/2024 15:09:55 09/19/19 25 09/22/2024 IGP,C TNG,A PTIMA HPV,R FX16/ 18,45 . . Not Available [facility] ([facility]) [address] [place], [address], 09/22/2024 15:09:55 09/19/19 25 09/22/2024 IGP,C TNG,A PTIMA HPV,R FX16/ 18,45 note: Commen t The Pap smear is a scree liu test desshanda holbrook to aid in the detec tion of barbara ligna nt and malig nant condi tions of the uteri ne cervi x. It is not a diagn ostic proce dure and shoul d not be used as the sole means of detec ting cervi yadira cance r. Both false -posi tive and false -nega tive repor ts do occur . Not Available [facility] ([facility]) [address] [place], [address], 09/22/2024 15:09:55 09/19/1909/22/2024 IGP,C TNG,A PTIMA HPV,R FX16/ 18,45 test methodology: Shania t This liqui d based ThinP rep(R ) pap test was scree yusef with the use of an image guide hugo feliz. Not Available [facility] ([facility]) [address] [place], [address], 09/22/2024 15:09:55 09/19/1909/22/2024 IGP,C TNG,A PTIMA HPV,R FX16/ 18,45 HPV genotype reflex Commen t Crite saman not met, HPV Genot ype not perfo rmed. Not Available [facility] ([facility]) [address] [place], [address], 09/22/2024 15:09:55 Result Notes None recorded. Problems Name Problem SNOMED Code Status Onset Date Resolution Date Notes Provider Name and Address Organization Details Recorded Time Mixed anxiety and depressive disorder 115623782 Active 023 Padmini Tabor , OUMAR [address], [place], [address], [facility] 3 11:49:42 Insomnia 994748021 Active 023 Padmini Tabor NP [address], [place], [address], [facility] 3 11:49:40 Problem Notes None recorded. Medical Equipment None Reported. Allergies No known drug allergies Medications Name Sig Start Date Stop Date Status Note LastModified by Organization Details LastModified Time Prescript ion - Prior Authoriza tion Request 02/21 completed Not Available Not Available Not Available fluoxetin e 40 mg capsule TAKE 1 CAPSULE BY MOUTH ONCE DAILY active Not Available Not Available No t Available cyanocoba hieu (vit B-12) ER 1,000 mcg tablet,ex tended release 10/10 completed Not Available Not Available Not Available acetic acid 2 % ear solution INSTILL 4 DROPS INTO AFFECTED EAR(S) EVERY 8 HOURS FOR 7 DAYS 12/13 completed Not Available Not Available Not Available cetirizin e 10 mg tablet TAKE 1 TABLET BY MOUTH ONCE DAILY FOR 14 DAYS active Not Available Not Available No t Available ibuprofen 800 mg tablet TAKE 1 TABLET BY MOUTH EVERY 6 HOURS NEEDED FOR PAIN/FEV ER/INFLA MMATION WITH FOOD active Not Available Not Available No t Available hydrocodo ne 5 mg-acetam inophen 325 mg tablet TAKE 1 TABLET BY MOUTH EVERY 6 HOURS NEEDED 03/18 completed Not Available Not Available Not Available ondansetr on HCl 4 mg tablet TAKE 1 TABLET BY MOUTH EVERY 4 HOURS NEEDED 03/18 completed Not Available Not Available Not Available methylerg onovine 0.2 mg tablet 12/13 completed Not Available Not Available Not Available ciproflox acin 500 mg tablet TAKE 1 TABLET BY MOUTH TWICE DAILY FOR 10 DAYS, START THIS EVENING. 03/18 completed Not Available Not Available Not Available sulfameth oxazole 800 mg-trimet hoprim 160 mg tablet TAKE 1 TABLET BY MOUTH TWICE DAILY FOR 7 DAYS 03/18 completed Not Available Not Available Not Available triamcino lone acetonide 0.1 % topical cream APPLY A THIN LAYER OF CREAM TOPICALL Y TO AFFECTED AREA(S) TWICE DAILY FOR 14 DAYS active Not Available Not Available No t Available lamotrigi ne 25 mg tablet TAKE 1 TABLET BY MOUTH ONCE DAILY FOR 7 DAYS, THEN INCREASE TO 2 TABLETS ONCE DAILY 01/30 completed Not Available Not Available Not Available tamsulosi n 0.4 mg capsule TAKE 1 CAPSULE BY MOUTH ONCE DAILY 1/2 HOUR FOLLOWIN G THE SAME MEAL EACH DAY 03/18 completed Not Available Not Available Not Available progester one micronize d 200 mg capsule TAKE 3 CAPSULES BY MOUTH AT BEDTIME 12/13 completed Not Available Not Available Not Available pyridoxin e (vitamin B6) 50 mg tablet 04/04 completed Not Available Not Available Not Available folic acid 1 mg tablet TAKE 4 TABLETS BY MOUTH ONCE DAILY active Not Available Not Available No t Available ibuprofen 600 mg tablet 12/13 completed Not Available Not Available Not Available scopolami ne 1 mg over 3 days transderm al patch apply 1 patch q3 days prn 2024 active Not Available Not Available Not Avai lable fluoxetin e 20 mg capsule TAKE 1 CAPSULE BY MOUTH ONCE DAILY 04/20 completed Not Available Not Available Not Available fluticaso ne propionat e 50 mcg/actua tion nasal spray,sally pension USE 1 SPRAY(S) IN EACH NOSTRIL ONCE DAILY FOR 7 DAYS active Not Available Not Available No t Available amoxicill in 875 mg-potass ium clavulana te 125 mg tablet TAKE 1 TABLET BY MOUTH TWICE DAILY 03/18 completed Not Available Not Available Not Available ciproflox acin 0.3 %-dexamet hasone 0.1 % ear drops,sally pension INSTILL 3 DROPS INTO EACH EAR TWICE DAILY FOR 7 DAYS 07/27 completed Not Available Not Available Not Available Tri-Sprin dianne (28) 0.18 mg(7)/0.2 15 mg(7)/0.2 5 mg(7)-0.0 35 mg tablet TAKE 1 TABLET BY MOUTH ONCE DAILY 05/23 completed Not Available Not Available Not Available B12 07/27 completed duplicat e Not Available Not Available Not Available Vraylar 1.5 mg capsule Take 1 capsule every day by oral route for 30 days. 05/23 completed Not Available Not Available Not Available EluRyng 0.12 mg-0.015 mg/24 hr vaginal ring INSERT ONE RING VAGINALL Y AND LEAVE IN PLACE FOR 3 CONSECUT FRED WEEKS, THEN REMOVE FOR 1 WEEK. INSERT NEW RING 7 DAYS AFTER THE LAST WAS REMOVED 02/21 completed Not Available Not Available Not Available Vitals Date Recorded Body height Body mass index (BMI) Body weight Body temperature Heart rate Oxygen saturation Oxygen saturation in Arterial blood by Pulse oximetry Systolic And Diastolic Provider Name and Address Organization Details Last Updated DateTime 167.64 cm 47 kg/m2 125790. 38 g 97.7 [degF] 98 /min 99 % 99 % 124/78 mm[Hg] Kailee Dunham [facility] 15:02:04 Date Recorded Body height Body mass index (BMI) Body weight Body temperature Heart rate Oxygen saturation Oxygen saturation in Arterial blood by Pulse oximetry Systolic And Diastolic Provider Name and Address Organization Details Last Updated DateTime 167.64 cm 45.4 kg/m2 403183. 46 g 98.1 [degF] 110 /min 98 % 98 % 126/90 mm[Hg] Rosaura Patel [facility] 14:02:00 Date Recorded Heart rate Provider Name an d Address Organization Details Last Updated DateTime 12/26/2024 96 /min Padmini Santana er, [employer] [address],[facility] [address], [place], [address], [facility] 12/26/2024 12:46:07 Date Recorded Body height Body mass index (BMI) Body weight Body temperature Heart rate Oxygen saturation Oxygen saturation in Arterial blood by Pulse oximetry Systolic And Diastolic Provider Name and Address Organization Details Last Updated DateTime 5 167.64 cm 46.6 kg/m2 030926. 19 g 97.8 [degF] 135 /min 97 % 97 % 128/84 mm[Hg] Kailee Dunham [facility] 12:00:03 Date Recorded Body height Body mass index (BMI) Body weight Body temperature Heart rate Oxygen saturation Oxygen saturation in Arterial blood by Pulse oximetry Respiratory rate Systolic And Diastolic Provider Name and Address Organization Details Last Updated DateTime 4 167.64 cm 47.1 kg/m2 565918. 67 g 96.5 [degF] 94 /min 98 % 98 % 17 /min 128/76 mm[Hg] [facility] 4 11:26:12 Date Recorded Body height Body mass index (BMI) Body weight Body temperature Heart rate Oxygen saturation Oxygen saturation in Arterial blood by Pulse oximetry Systolic And Diastolic Provider Name and Address Organization Details Last Updated DateTime 4 167.64 cm 47.8 kg/m2 497167. 04 g 97.9 [degF] 105 /min 98 % 98 % 126/74 mm[Hg] [facility] 4 15:04:25 Social History Question Answer Notes LastModified by Organizat ion Details LastModified Time Tobacco Smoking Status [facility]/18/[facility]23 14:26:15 What Is Your Level Of Caffeine Consumption? Moderate Information not available 03/18/2023 In The 14 Days Before Symptom Onset, Have You Had Close Contact With A Laboratory-confir med COVID-19 While That Case Was Ill? No Information not available 03/18/2023 In The 14 Days Before Symptom Onset, Have You Had Close Contact With A Person Who Is Under Investigation For COVID-19 While That Person Was Ill? No Information not available 03/18/2023 What Type Of Diet Are You Following? REGULAR Information not available 03/18/2023 Have There Been Any Changes To Your Family Or Social Situation? Yes Lost A Child In 2019 Information not available 03/18/2023 What Is The Fluoride Status Of Your Home? Unknown Information not available 03/18/2023 What Was The Date Of Your Most Recent Tobacco Screening? 12/26/2024 [email or web address] Information not available 12/26/2024 Have You Ever Been Counseled For Unhealthy Alcohol Use? No Information not available 03/18/2023 Do You Have Any Pets? Yes Information not available 03/18/2023 What Is Your Relationship Status? Information not available 03/18/2023 Do You Have Smoke And Carbon Monoxide Detectors In Your Home? Yes Information not available 03/18/2023 Are You Passively Exposed To Smoke? No Information no t available 03/18/2023 Are There Any Smokers In Your House? No Information not available 03/18/2023 Do You Participate In Social Media? Yes Information not available 03/18/2023 Do You Use Sunscreen Routinely? Yes Information not available 03/18/2023 Has Tobacco Cessation Counseling Been Provided? No Information not available 03/18/2023 Have You Recently Traveled Abroad? No Information not available 03/18/2023 Do You Have Any Dietary Restrictions? No Information not available 03/18/2023 How Many Days In The Past Year Have You Consumed 4 Or More Drinks? 0 [email or web address] Information no t available 12/26/2024 Sex: Unknown Functional Status Question Answer Note LastModified by [employer] nv ion Details LastModified Time Do you use any illicit or recreational drugs? No Information not available 03/18/2023 Do you or have you ever used any other forms of tobacco or nicotine? No Information not available 03/18/2023 What is your level of alcohol consumption? Occasional Information not available 03/18/2023 Are you currently employed? No Information not available 03/18/2023 What is your exercise level? None Information not available 03/18/2023 Mental Status Question Answer Note LastModified by Organization D etails LastModified Time Do you feel stressed (tense, restless, nervous, or anxious, or unable to sleep at night)? [id number] [email or web address] Information not available 07/27/2023 Family History Relationship Description Onset Age of this Age Resolved Age Notes LastModified by Organization Details LastModified Time Father Hypertensive disorder Not available 04/2023 14:25:22 Maternal Grandfather Malignant melanoma Not available 04/2023 14:25:34 Maternal Grandmother Family history of breast cancer gene BRCA mutation Not available 04/2023 14:25:43 Medical History No medical history recorded. Gynecological History Statement/Question Response Flow Moderate Frequency of Cycle (Q days) 29 Date of LMP 08/17/2024 Menses Monthly Y Date of Last Pap 09/19/2024 Current Control Method None Obstetrics History GPAL:G 0 P 0 0 2 0 Type Value Spontaneous 2 Immunizations Vaccine Type Date Status Note Provider Nam e and Address Organization Details Recorded Time Tdap 04/04/2024 completed Padmini Tabor, [employer] [address] [facility] [address] [facility],[address], [place], [address], [facility] 04/04/2024 12:53:06 Influenza, split virus, trivalent, PF 09/19/2024 completed [facility] 09/19/[facility]24 15:35:10 Past Encounters Encounter ID Performer Location Encounter Start Date Encounter Closed Date Diagnosis/Indication Diagnosis SNOMED-CT Code Diagnosis ICD10 Code Diagnosis Note [id number] BRAN MORALES MD [facility] [address] [address] 03/18/2023 14:07:18 03/18/2023 14:47:15 Adult health examination 161492968 Z00.00 Normal exam. Will obtain last set of labs from [facility]-pt mentions they said her cholestero l was elevated. F/U in 1 year for wellness. Mixed anxi ety and depressive disorder 683846399 F41.8 JUNAID-7 (17).De nies SI/HI. Likely some underlying PTSD from having to terminate her at 5 months gestation. Will start tx as ordered below. Discussed side effects of antidepres sants such as decreased reaction time, clouded judgement, drowsiness , GI upset, weight gain, sleep disturbanc e, sexual dysfunctio n, serotonin syndrome, anti-choli nergic effects, withdrawal with abrupt discontinu ation of medication , and suicidal thoughts. Patient has agreed to notify me immediatel y if they develop any of these symptoms. Education provided about the possible danger associated with the use of anti-depre ssants while operating heavy equipment or driving. The patient has agreed not to drive or operate heavy machinery if there is a developmen t of any of these symptoms. Education provided to patient regarding mixing of this medication with other substances including alcohol which may make side effects worsen. Patient has verbalized understand ing of the instructio ailyn and has agreed to proceed with treatment. I will see her back in 6 weeks, sooner if needed. She is agreeable to counseling , will send referral. Insomnia 947580138 G47.0 0 Sleeping well when she takes OTC Nyquil. Advised on avoiding hanger off use of this medication . Prozac did help her with sleep in the past. If not effective, then plan to start Trazodone. Advised good sleep habits and patterns to include: 1. Setting a goal for at least 7 to 8 hours of sleep time per day. 2. Using the bed mainly for sleep and to go to bed only when tired. If unable to fall asleep after 30 minutes, patient should get out of bed but should not engage in any activity that requires sustained mental alertness. 3. Maintainin g a regular bedtime and wake-up time even on weekends or days off of work. 4. Avoiding excessive naps during the daytime. If a nap is necessary, limit it to no more than 30minutes. 5. Minimizing environmen sarita noise, bright lights, and extremes in bedroom temperatur e. 6. Avoiding alcohol, caffeinate d beverages, and nicotine products for at least 6 hours prior to bedtime. 7. Avoiding strenuous exercise and large meals for at least 4 hours prior to bedtime. Depression screening 171 335558 Z13.31 17 (for the PHQ-9). Positive. Denies SI/HI. See above. Body mass index 40+ - severely obese 442360080 Z68.41 BMI 42.0. Encouraged healthy diet and exercise. Vaccine de clined by patient 7421016126 02 Z28.21 Refuses Tdap today. Elevated blood-pressure reading without diagnosis of hypertension 711301348 R03.0 BP 132/92. May be anxiety driven. Denies any s/s related to HTN including CP/SOB. Will reassess at her 6 week med f/u. [id number] BRAN MORALES MD [facility] [address] [address] 04/20/2023 11:40:04 04/20/2023 11:55:28 Mixed anxiety and depressive disorder 502083602 F41.8 JUNAID-7 (03/30). Improved from 17.Denies SI/HI. Likely some underlying PTSD from having to terminate her at 5 months gestation. Her mood seems much better during OV today and she is not tearful. She would like to see about dose increase as her anxiety is still an issue. Will increase Fluoxetine to 40 mg daily. I will see her back in 6 weeks, sooner if needed. Encouraged getting date set for counseling . Insomnia 948717665 G47.0 0 Sleeping well now since starting Fluoxetine . No longer needing anything OTC. Advised good sleep habits and patterns to include: 1. Setting a goal for at least 7 to 8 hours of sleep time per day. 2. Using the bed mainly for sleep and to go to bed only when tired. If unable to fall asleep after 30 minutes, patient should get out of bed but should not engage in any activity that requires sustained mental alertness. 3. Maintainin g a regular bedtime and wake-up time even on weekends or days off of work. 4. Avoiding excessive naps during the daytime. If a nap is necessary, limit it to no more than 30minutes. 5. Minimizing environmen sarita noise, bright lights, and extremes in bedroom temperatur e. 6. Avoiding alcohol, caffeinate d beverages, and nicotine products for at least 6 hours prior to bedtime. 7. Avoiding strenuous exercise and large meals for at least 4 hours prior to bedtime. Depression screening 171 881396 Z13.31 0 (for the PHQ-2). Negative. Improved from 17. Elevated blood-pressure reading without diagnosis of hypertension 171296633 R03.0 BP 122/90. May be anxiety driven. Improving. Denies any s/s related to HTN including CP/SOB. Will reassess at her 6 week med f/u. [id number] BRAN MORALES MD [facility] [address] [address] 04/04/2024 11:17:49 04/04/2024 11:53:46 Adult health examination 214827232 Z00.00 Normal exam. UTD on screening labs. F/U in 1 year for wellness. Insomnia 718486361 G47.0 0 Continues to sleep well since starting Fluoxetine . Will refill PRN. Advised good sleep habits and patterns to include: 1. Setting a goal for at least 7 to 8 hours of sleep time per day. 2. Using the bed mainly for sleep and to go to bed only when tired. If unable to fall asleep after 30 minutes, patient should get out of bed but should not engage in any activity that requires sustained mental alertness. 3. Maintainin g a regular bedtime and wake-up time even on weekends or days off of work. 4. Avoiding excessive naps during the daytime. If a nap is necessary, limit it to no more than 30minutes. 5. Minimizing environmen sarita noise, bright lights, and extremes in bedroom temperatur e. 6. Avoiding alcohol, caffeinate d beverages, and nicotine products for at least 6 hours prior to bedtime. 7. Avoiding strenuous exercise and large meals for at least 4 hours prior to bedtime. Mixed anxi ety and depressive disorder 680558647 F41.8 Denies SI/HI. Doing much better on current dose of medication s. Will refill PRN. Body mass index 40+ - severely obese 057727755 Z68.42 BMI 47.1. Encouraged healthy diet and exercise. Surveillan ce of oral contraception 690980660 Z30.41 Did not start her OCP and not sure if she will do so. F/U PRN. Depression screening 171 607634 Z13.31 0 (for the PHQ-2), Finding: Negative. Improved from 10. Administra tion of diphtheria, pertussis, and tetanus vaccine 444230085 Z23 Tdap updated, pt tolerated well. [id number] BRAN MORALES MD [facility] [address] [place] [address] 07/27/2023 09:53:16 07/27/2023 10:14:00 Mixed anxiety and depressive disorder 758083025 F41.8 JUNAID-7 (09/30). Improved from 8.Denies SI/HI. Doing very well on current dose of medication . Life changing per pt. Will send refills. F/U PRN. Insomnia 852543715 G47.0 0 Sleeping well now since starting Fluoxetine . No longer needing anything OTC. Advised good sleep habits and patterns to include: 1. Setting a goal for at least 7 to 8 hours of sleep time per day. 2. Using the bed mainly for sleep and to go to bed only when tired. If unable to fall asleep after 30 minutes, patient should get out of bed but should not engage in any activity that requires sustained mental alertness. 3. Maintainin g a regular bedtime and wake-up time even on weekends or days off of work. 4. Avoiding excessive naps during the daytime. If a nap is necessary, limit it to no more than 30minutes. 5. Minimizing environmen sarita noise, bright lights, and extremes in bedroom temperatur e. 6. Avoiding alcohol, caffeinate d beverages, and nicotine products for at least 6 hours prior to bedtime. 7. Avoiding strenuous exercise and large meals for at least 4 hours prior to bedtime. Otomycosis 34319411 B36. 9 Will treat as ordered below. Discussed use of supportive care measures including OTC tylenol/ib uprofen for pain, use of warm compress. F/U PRN & if sx persist/wo rsen. Depression screening 171 378230 Z13.31 0 (for the PHQ-2). Negative. Improved from 17. [id number] BRAN MORALES MD [facility] [address] [address] 12/14/2023 16:18:00 12/14/2023 16:40:48 Insomnia [id number] G47.00 Continues to sleep well since starting Fluoxetine . Will refill PRN. Advised good sleep habits and patterns to include: 1. Setting a goal for at least 7 to 8 hours of sleep time per day. 2. Using the bed mainly for sleep and to go to bed only when tired. If unable to fall asleep after 30 minutes, patient should get out of bed but should not engage in any activity that requires sustained mental alertness. 3. Maintainin g a regular bedtime and wake-up time even on weekends or days off of work. 4. Avoiding excessive naps during the daytime. If a nap is necessary, limit it to no more than 30minutes. 5. Minimizing environmen sarita noise, bright lights, and extremes in bedroom temperatur e. 6. Avoiding alcohol, caffeinate d beverages, and nicotine products for at least 6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
--- OUTSIDE RECORDS SUMMARY | 2025-02-11 17:57 | XMS_ITS | Patient Health Record ---
Author Organization [facility] Address [address] [place], [place] [id number] Care Team Providers Care Dirt Shoveler Name Role Phone GLORIA RAYRAY Unavailable [phone] Answer, Declined Unavailable Unavailable Allergies No Known Allergies Reason For Referral No Information Medications Medication SIG (Take, Route, Fr equency, Duration) Notes Start Date End Date Status Folic Acid 1 MG TAKE 4 TABLETS BY MO UT ONCE DAILY Oral; Duration: 30 Days Ac tive FLUoxetine HCl 40 MG Oral; Duration: 30 Days Active Vital Signs Height-cm 167.64 cm 10/18/2024 Weight-kg 117.94 kg 10/18/2024 Height 66 in 10/18/2024 Weight 260 lbs 10/18/2024 BMI 41.96 kg/m2 10/18/2024 Encounters Encounter Location Date Provider Diagnosis [facility] [address] [place], [place] [id number] 08/29/2024 RAYRAY CASTRO Contusion of left great toe without damage to nail, initial encounter S90.112A and Pain in right toe(s) M79.674 [facility] [address] [place], [place] [id number] 10/18/2024 RAYRAY CASTRO Ingrowing nail L60.0 ; Contusion of left great toe without damage to nail, subsequent encounter S90.112D and Pain in left toe(s) M79.675 [facility] [address] [place], [place] [id number] 10/31/2024 RAYRAYDAVON CASTRO Ingrowing nail L60.0 and Encounter for other specified surgical aftercare Z48.89 [facility] [address] [place], [place] [phone] 10/19/2024 RAYRAY CASTRO Assessments Encounter Date Diagnosis (ICD Code) Assessment Notes Treatment Notes Treatment Clinical Notes Section Notes 08/29/2024 Pain in right toe(s) (ICD-10 - M79.674) 08/29/2024 Contusion of left great toe without damage to nail, initial encounter (ICD-10 - S90.112A) 10/18/2024 Ingrowing nail (ICD-10 - L60.0) 10/18/2024 Contusion of left great toe without damage to nail, subsequent encounter (ICD-10 - S90.112D) 10/31/2024 Ingrowing nail (ICD-10 - L60.0) 10/31/2024 Encounter for other specified surgical aftercare (ICD-10 - Z48.89) 10/18/2024 Pain in left toe(s) (ICD-10 - M79.675) 08/29/2024 Other I advised the patient that no further treatment is necessary at this time. If the condition should worsen they should call the office. 10/18/2024 Other I discussed various treatment options to the patient for onychocryptosis. I discussed removal of the offending nail border and chemical matrixectomy to prevent regrowth. The patient decided on temporary removal of the nail border. The consent was signed and placed in the patients chart and all questions were answered. Following skin prep, the toe was injected with 3ccs of a 1:1 mixture of 0.5% marcaine plain and 1% lidocaine plain. A digital tournequet was applied and the offending nail was removed. The digital tourniquet was released and the toe was cleansed with isopropyl alcohol. A dry sterile compressive dressing was applied and the patient was given soaking instructions. 10/31/2024 Other I advised the patient that no further treatment is necessary at this time. If the condition should worsen they should call the office. Plan Of Treatment No Information Insurance Providers Payer Name Payer Address Payer Phone Subscriber Number Group Number Insured Name Patient Relationship to Insured Coverage Start Date Coverage End Date [address] [place] [id number] [phone] [id number] MARIANO TILLMAN Self - patient is the insured Medical (General) History Medical History History ICD Code kidney stones
--- OUTSIDE RECORDS SUMMARY | 2025-02-11 17:58 | XMS_ITS | Patient Health Record ---
Author Organization [facility] Address [address] [place] [address] Care Team Providers Care Duty Engineer Name Role Phone SYED Frederick Unavailable [phone] Reason For Referral No Information Medications Medication SIG (Take, Route, Frequency, Duration) Notes Start Date End Date Status Tamiflu 75 MG 1 capsule Orally onc e a day; Duration: 08/06/2012 Active Tamiflu 75 mg one tablet Orally on ce a day; Duration: 09/12/2016 Active Alahist AC 7.5-10 MG/5ML 5ml Orally q6; Duration: 02/02/2012 Active Amoxil Active promethazine gel Act olamide Immunizations Vaccine Route Administration Date Status Comme nts DTAP (UNDER 7 YRS OLD) with fee Unknown 1998 Admi nistered DTAP (UNDER 7 YRS OLD) with fee Unknown 1998 Admi nistered DTAP (UNDER 7 YRS OLD) with fee Unknown 1998 Admi nistered IMMTRAC-HEP B HX DATA Unknown 1998 Administered IMMTRAC-HEP B HX DATA Unknown 1998 Administered IMMTRAC-HEP B HX DATA Unknown 1998 Administered IMMTRAC-HIB HX DATA Unknown 1998 Administered IMMTRAC-HIB HX DATA Unknown 1998 Administered IMMTRAC-HIB HX DATA Unknown 1998 Administered IPV INJECTABLE POLIO with fee Unknown 1998 Admini stered IPV INJECTABLE POLIO with fee Unknown 1998 Admini stered Problems Problem Type SNOMED Code ICD Code Onset Dates Problem Status W/U Status Risk Notes Problem Abdominal pain (finding) (77467391) Abdominal pain, unspecified site (789.00) Active confirmed Problem Vomiting (706566866) Vomiting (787.03) Active confirmed Problem Cough (13102779) Cough (786.2) Active confirmed Plan Of Treatment No Information Insurance Providers Payer Name Payer Address Payer Phone Subscriber Number Group Number Insured Name Patient Relationship to Insured Coverage Start Date Coverage End Date [employer] [address] [facility] [place] [address] [phone] [id number] CECELIA TILLMAN Child - Insured has Financial Responsibility Medical (General) History Medical History History ICD Code TAGA FEMALE BWT 3015 KG VIRAL GE REC BOM TORUS FRACTURE LEFT DISTAL RADIUS 12/14 INFECTED LOBE EAR c LYMPHADENOPATHY 9 Bilateral Lower Quadrant Abd Pain ?? Ova hilton Cyst 09/19 Removal Ear-ring stud embedded left ear lobe 11/17
--- OUTSIDE RECORDS SUMMARY | 2025-02-11 17:58 | XMS_ITS | Patient Health Record ---
Author Organization [facility] Address [address] [facility] [address] [place] [address] Care Team Providers Care Division Roadmaster Name Role Phone Estrellita MUELLER, Cristhian Primary Care Provider [phone] Reason For Referral No Information Plan Of Treatment No Information
[2025-02-11 18:06] VITALS: BP 142/92; PULSE 89; RESP 16; TEMP 37; O2SAT 97
[2025-02-11] MEDS: HYDROGEN PEROXIDE 3% SOLN(*SP) 473 ML BOTTLE 30 ML IRRIGATION (18:14)
== END 2025-02-11 18:21 | disposition home or self-care (01) ==
PROVIDERS: Emergency Provider Nurse Practitioner Family
DX: H61.21 Impacted cerumen, right ear (principal); H60.311 Diffuse otitis externa, right ear
CPT/HCPCS: 69209; 99203; A9270; G0463